=== PATIENT | female | born 1995 | race Caucasian/White ===

== ENCOUNTER 2019-11-14 01:27 | Emergency (ER) | payer MEDICAID, OTHER ==
[~2019-11-14] VITALS: Ht 172.7 cm; Wt 65.0 kg
[~2019-11-14 01:27] MED LIST: MULT-516 PO; NONE PER PT
[2019-11-14] MEDS ORDERED: MIDAZOLAM 1 MG/ML, 2ML ONE (01:54)
[2019-11-14 02:00] LABS: BASOPHILS # (AUTO) 0.03 x10^3/uL (0-0.1); BASOPHILS % (AUTO) 0 % (0-1); EOSINOPHILS # (AUTO) 0.35 x10^3/uL (0-0.4); EOSINOPHILS % (AUTO) 6 % (1-7); LYMPHOCYTES # (AUTO) 2.22 x10^3/uL (1-3.4); LYMPHOCYTES % (AUTO) 36 % (22-44); MD NO; MEAN CORPUSCULAR HEMOGLOBIN 32.5 pg (27.0-34.8); MEAN CORPUSCULAR HGB CONC 33.9 g/dL (32.4-35.8); MEAN CORPUSCULAR VOLUME 95.8 fL (80-100); MEAN PLATELET VOLUME 9.5 fL (7.4-10.4); MONOCYTES # (AUTO) 0.35 x10^3/uL (0.2-0.8); MONOCYTES % (AUTO) 6 % (2-9); NEUTROPHILS # (AUTO) 3.24 x10^3/uL (1.8-6.8); NEUTROPHILS % (AUTO) 52 % (42-75); PLATELET COUNT 241 x10^3/uL (130-400); RED BLOOD COUNT 5.09 x10^6/uL (3.82-5.3); RED CELL DISTRIBUTION WIDTH 12.5 % (9.6-15.2)
[2019-11-14 02:10] LABS: ALBUMIN 4.4 g/dL (3.4-5.0); ANION GAP 9 mmol/L (5-15); CALCIUM 9.2 mg/dL (8.5-10.1); CHLORIDE 110 mmol/L (98-107); CREATININE 0.72 mg/dL (0.55-1.02); SALICYLATE LEVEL 2.6 mg/dL (2.8-20.0)
--- NOTE | 2019-11-14 02:12 | NUR ---
PT "CHICKEN LITTLE" AKA "GREG" PHONE # [phone]
[2019-11-14 02:23] LABS: AMPHETAMINE SCREEN, URINE Negative (Negative); BARBITURATE SCREEN, URINE Negative (Negative); BENZODIAZEPINE SCREEN, URINE Negative (Negative); CANNABINOID SCREEN, URINE Negative (Negative); COCAINE SCREEN, URINE Negative (Negative); METHADONE SCREEN, URINE Negative (Negative); OPIATE SCREEN, URINE Negative (Negative)
[2019-11-14] MEDS ORDERED: MIDAZOLAM 1 MG/ML, 2ML IVPush ONE (02:30)
--- NOTE | 2019-11-14 02:30 | NUR ---
BREAK RN: PATIENT ATTEMPTED TO HARM HERSELF WITH EAR-RINGS. IT WAS EXPLAINED TO THE PATIENT THAT SHE WAS NO LONGER ALLOWED TO HAVE EAR-RINGS OR OTHER JEWLERY. PATIENT WILLINGLY AGREED TO HAVE JEWLERY TAKEN TO SAFE WITH SECURITY.
--- NOTE | 2019-11-14 02:49 | NUR ---
PATIENTS BELONGINGS PLACED WITH SECURITY. SECURITY RECIEPT PLACED ON PATIENT'S CHART. PATIENT SIGNED FOR BELONGINGS TO BE TAKEN TO THE SAFE.
--- NOTE | 2019-11-14 02:58 | NUR ---
PATIENT'S HAS ARRIVED. PATIENT AGREED TO BE CALM AND COOPERATIVE. PATIENT IS BEING ALLOWED TO SEE IF SHE FOLLOWS INSTRUCTIONS. PATIENT'S UPDATED ON PLAN OF CARE.
--- NOTE | 2019-11-14 03:00 | NUR ---
REPORT GIVEN TO BONNIE ARANA, WOOD HAS CONCLUDED.
[2019-11-14] MEDS ORDERED: hydrOXyzine 50MG TABLET ONE (03:58)
[2019-11-14] MEDS ORDERED: hydrOXyzine 50MG TABLET PO ONE (04:00)
--- NOTE | 2019-11-14 04:02 | NUR ---
PT THREATED TO "ACT OUT" TO GET A MEDICATION TO HELP HER SLEEP. PROVIDER NOTIFIED
--- NOTE | 2019-11-14 05:00 | NUR ---
PT PROVIDED A PHONE TO CALL HER WORK TO LET THEM KNOW SHE WOULD NOT BE THERE TOMMOROW
--- NOTE | 2019-11-14 05:12 | NUR ---
PT PROVIDED A HOSPITAL BED AND A PILLOW WITH LINENS. SITTER AT PT BED SIDE AND PT ROOM SI SECURE.
--- NOTE | 2019-11-14 06:02 | NUR ---
packet faxed to [facility], lenora, sb, rbh, stu
--- NOTE | 2019-11-14 06:30 | NUR ---
LEXUS FROM [facility] CALLED AND STATED THAT THEY ARE CURRENTLY FULL BUT THEY WILL KEEP PTS PACKED ON HAND JUST IN CASE THERE IS A DISCHARGE.
--- NOTE | 2019-11-14 06:44 | NUR ---
PT SLEEPING IN BED. ELECTRONIC GLUER AT BEDSIDE WITH PT ROOM SI SECURE
--- NOTE | 2019-11-14 06:57 | NUR ---
REPORT RECEIVED FROM YASMEEN NICOLE. PT SLEEPING ON HOSPITAL BED W/ SITTER OUTSIDE ROOM AND GARAGE DOORS DOWN FOR SAFETY. RESP EVEN AND UNLABORED, YASMINE.
--- NOTE | 2019-11-14 08:00 | NUR ---
PT SLEEPING ON HOSPITAL BED W/ SITTER OUTSIDE ROOM AND GARAGE DOORS DOWN. RESP EVEN AND UNLABOED, YASMINE.
--- NOTE | 2019-11-14 09:00 | NUR ---
PT SLEEPING ON HOSPITAL BED W/ SITTER OUTSIDE ROOM AND GARAGE DOORS DOWN. RESP EVEN AND UNLABOED, YASMINE.
--- NOTE | 2019-11-14 09:26 | NUR ---
task rn: pt continues to rest on bkea. natividad. all safety measures obtained.
--- NOTE | 2019-11-14 10:00 | NUR ---
PT SLEEPING ON HOSPITAL BED W/ SITTER OUTSIDE ROOM AND GARAGE DOORS DOWN. RESP EVEN AND UNLABOED, YASMINE.
--- NOTE | 2019-11-14 10:57 | NUR ---
REPORT GIVEN TO NOELLE NICOLE. PT SLEEPING ON HOSPITAL BED W/ SITTER OUTSIDE ROOM AND GARAGE DOORS DOWN FOR SAFETY. RESP EVEN AND UNLABORED, YASMINE.
--- NOTE | 2019-11-14 11:24 | NUR ---
PT AMBULATED TO WITHOUT DIFFICULTY. WATER PROVIDED. DECLINES FOOD AT THIS TIME. FLAT AFFECT, STATES SHE FEELS "EMOTIONALLY DRAINED". PATTERNMAKER ALL AROUND AT FOR VS AND BREATHALYZER. Addendum: 11/14/19 at 1407 by HBENSON SITTER OUTSIDE ROOM AT ALL TIMES.
--- NOTE | 2019-11-14 13:00 | NUR ---
PSYCH BRAZING MACHINE OPERATOR WAS IN TO SPEAK WITH PT.
[2019-11-14] MEDS ORDERED: FLUOXETINE HCL 20 MG CAPSULE PO ONE (13:30)
--- NOTE | 2019-11-14 13:40 | NUR ---
LEGAL HOLD DC'D BY PSYCH PREMIX CONCRETE BATCHER.
[2019-11-14 13:45] VITALS: BP 117/76
[2019-11-14] MEDS ORDERED: FLUOXETINE HCL 20 MG CAPSULE ONE (13:47)
--- NOTE | 2019-11-14 13:50 | NUR ---
PT MEDICATED PER ORDERS. AT BS TO TAKE PT HOME. D/C INSTRUCTIONS, MEDS & F/U APPT RV'WD WITH PT, SHE VERBALIZES UNDERSTANDING. RX GIVEN X2. COMMUNITY RESOURCES/MENTAL HEALTH RESOURCES PROVIDED TO PT. PT AMBULATED OUT OF ED WITH WITHOUT DIFFICULTY.
== END 2019-11-14 14:03 | disposition home or self-care (01) ==
LOC: ED 10:33
DX: T14.91XA Suicide attempt, initial encounter (principal); F10.129 Alcohol abuse with intoxication, unspecified; X83.8XXA Intentional self-harm by other specified means, initial encounter; Z87.891 Personal history of nicotine dependence; Y93.89 Activity, other specified; Y92.89 Other specified places as the place of occurrence of the external cause; Y99.8 Other external cause status; Y90.9 Presence of alcohol in blood, level not specified
CPT/HCPCS: 36415; 80048; 80307; 82040; 84703; 85025; 96374; 99284; J2250; Q0177

== ENCOUNTER 2019-11-29 19:15 | Inpatient (IN) | payer OTHER ==
[~2019-11-29] VITALS: Ht 170.2 cm; Wt 72.2 kg
[~2019-11-29 19:15] MED LIST changes: +ETOMIDATE 20 MG/10 ML ONE; +MIDAZOLAM 1 MG/ML, 5ML ONE; +PROPOFOL 10 MG/ML, 100ML IV ONE; +SUCCINYLCHOLINE 20 MG/ML, 10ML ONE
[2019-11-29] MEDS ORDERED: SUCCINYLCHOLINE 20 MG/ML, 10ML IVPush ONE (19:30)
[2019-11-29] MEDS ORDERED: ETOMIDATE 20 MG/10 ML IV ONE (19:30)
[2019-11-29] MEDS ORDERED: SODIUM CHLORIDE 0.9% 1,000ML IVBOLUS ONE ×2 (19:30→23:00)
[2019-11-29 19:36] LABS: BASOPHILS # (AUTO) 0.02 x10^3/uL (0-0.1); BASOPHILS % (AUTO) 0 % (0-1); EOSINOPHILS # (AUTO) 0.16 x10^3/uL (0-0.4); EOSINOPHILS % (AUTO) 3 % (1-7); LYMPHOCYTES # (AUTO) 2.29 x10^3/uL (1-3.4); LYMPHOCYTES % (AUTO) 37 % (22-44); MD NO; MEAN CORPUSCULAR HEMOGLOBIN 32.5 pg (27.0-34.8); MEAN CORPUSCULAR HGB CONC 33.8 g/dL (32.4-35.8); MEAN CORPUSCULAR VOLUME 96.1 fL (80-100); MEAN PLATELET VOLUME 9.3 fL (7.4-10.4); MONOCYTES # (AUTO) 0.43 x10^3/uL (0.2-0.8); MONOCYTES % (AUTO) 7 % (2-9); NEUTROPHILS # (AUTO) 3.35 x10^3/uL (1.8-6.8); NEUTROPHILS % (AUTO) 54 % (42-75); PLATELET COUNT 211 x10^3/uL (130-400); RED BLOOD COUNT 4.59 x10^6/uL (3.82-5.3); RED CELL DISTRIBUTION WIDTH 12.9 % (9.6-15.2)
[2019-11-29] MEDS ORDERED: MIDAZOLAM 1 MG/ML, 2ML ONE ×2 (19:36)
[2019-11-29 19:48] LABS: ALBUMIN 3.8 g/dL (3.4-5.0); ANION GAP 10 mmol/L (5-15); CALCIUM 8.5 mg/dL (8.5-10.1); CHLORIDE 110 mmol/L (98-107)
[2019-11-29 19:52] LABS: SALICYLATE LEVEL < 1.7 mg/dL (2.8-20.0)
[2019-11-29 19:53] LABS: ALANINE AMINOTRANSFERASE 40 U/L (12-78); ALKALINE PHOSPHATASE 100 U/L (45-117); BILIRUBIN,TOTAL 0.4 mg/dL (0.2-1.0); CREATININE 0.48 mg/dL (0.55-1.02); TOTAL PROTEIN 7.6 g/dL (6.4-8.2)
[2019-11-29] MEDS ORDERED: MIDAZOLAM 1 MG/ML, 5ML IVPush ONE (20:00)
--- NOTE | 2019-11-29 20:16 | NUR ---
PT HYPOTHERMIC, WARMING MEASURES APPLIED.
[2019-11-29] MEDS ORDERED: PROPOFOL 100 ML IV PRN (20:30)
--- NOTE | 2019-11-29 20:32 | NUR ---
PT SANDRA [phone].
[2019-11-29] MEDS ORDERED: POTASSIUM CHLORIDE 20 MEQ TAB.ER.PRT PO ONE (20:34)
[2019-11-29] MEDS: PROPOFOL 100 ML IV PRN (20:54)
[2019-11-29] MEDS ORDERED: LIDOCAINE-MPF 1%, 2ML ENDO PRN (21:00)
[2019-11-29] MEDS ORDERED: PHARMACY MAY ADJ FOR RENAL FX MC SCH (21:00)
[2019-11-29] MEDS ORDERED: SODIUM CHLORIDE 0.9% 1,000 ML IV SCH (21:00)
[2019-11-29] MEDS ORDERED: MIDAZOLAM 1 MG/ML, 2ML IVPush ONE (21:00)
--- NOTE | 2019-11-29 21:10 | NUR ---
ER KATELYN AND STUDENT IN TO PLACE CENTRAL LINE AT THIS TIME
--- NOTE | 2019-11-29 21:20 | NUR ---
[facility] CONTROL CONTACTED. , SPOKE WITH RAJINDER. SHE SAID WE ARE DOING EVERYTHING CORRECT AND TO LOOK FOR QRS WIDENING AND QT INTERVAL ELEVATION THE PT RECOVERS FROM OD
--- NOTE | 2019-11-29 21:22 | NUR ---
REPORT TO BONNIE KIRKLAND
[2019-11-29] MEDS ORDERED: NOREPINEPHRINE 8 MG in SODIUM CHLORIDE 0.9% 242 ML IV PRN (21:30)
[2019-11-29 21:39] LABS: MICROSCOPIC AUTO
[2019-11-29 21:49] LABS: AMPHETAMINE SCREEN, URINE Negative (Negative); BARBITURATE SCREEN, URINE Negative (Negative); BENZODIAZEPINE SCREEN, URINE Positive (Negative); CANNABINOID SCREEN, URINE Negative (Negative); COCAINE SCREEN, URINE Negative (Negative); METHADONE SCREEN, URINE Negative (Negative); OPIATE SCREEN, URINE Negative (Negative)
[2019-11-29 22:00] VITALS: BP 87/46
[2019-11-29] MEDS: FAMOTIDINE 20 MG/2 ML IV SCH (23:06)
[2019-11-29] MEDS: POTASSIUM CHLORIDE 20 MEQ TAB.ER.PRT PO SCH (23:06)
[2019-11-29] MEDS: HEPARIN 5,000 UNITS/ML, 1ML SQ SCH (23:07)
[2019-11-30] MEDS: PHENYLEPHRINE 50 MG in SODIUM CHLORIDE 0.9% 245 ML IV PRN ×2 (02:11→10:28)
[2019-11-30 02:36] VITALS: BP 87/45
[2019-11-30] MEDS: FENTANYL PF 100 MCG/2ML IVPush PRN ×3 (02:56→20:18)
[2019-11-30 04:00] VITALS: BP 94/46
[2019-11-30 05:27] LABS: BASOPHILS # (AUTO) 0.02 x10^3/uL (0-0.1); BASOPHILS % (AUTO) 0 % (0-1); EOSINOPHILS % (AUTO) 1 % (1-7); LYMPHOCYTES # (AUTO) 2.18 x10^3/uL (1-3.4); LYMPHOCYTES % (AUTO) 28 % (22-44); MD NO; MEAN CORPUSCULAR HEMOGLOBIN 32.6 pg (27.0-34.8); MEAN CORPUSCULAR HGB CONC 33.7 g/dL (32.4-35.8); MEAN CORPUSCULAR VOLUME 96.9 fL (80-100); MEAN PLATELET VOLUME 9.2 fL (7.4-10.4); MONOCYTES # (AUTO) 0.48 x10^3/uL (0.2-0.8); MONOCYTES % (AUTO) 6 % (2-9); NEUTROPHILS % (AUTO) 64 % (42-75); PLATELET COUNT 167 x10^3/uL (130-400); RED BLOOD COUNT 3.77 x10^6/uL (3.82-5.3); RED CELL DISTRIBUTION WIDTH 13.1 % (9.6-15.2)
[2019-11-30 05:29] LABS: ANION GAP 8 mmol/L (5-15); CALCIUM 7.5 mg/dL (8.5-10.1); CHLORIDE 118 mmol/L (98-107); CREATININE 0.51 mg/dL (0.55-1.02)
[2019-11-30] MEDS: POTASSIUM CHLORIDE 20 MEQ TAB.ER.PRT PO SCH ×2 (08:45→16:35)
[2019-11-30] MEDS: FAMOTIDINE 20 MG/2 ML IV SCH ×2 (08:45→22:10)
[2019-11-30] MEDS: HEPARIN 5,000 UNITS/ML, 1ML SQ SCH ×2 (08:45→16:35)
[2019-11-30] MEDS: SODIUM CHLORIDE 0.45% 1,000 ML IV SCH (10:27)
[2019-11-30 10:43] LABS: FREE T4 (FREE THYROXINE) 0.86 ng/dL (0.76-1.46)
[2019-11-30] MEDS: PROPOFOL 100 ML IV PRN (20:19)
[2019-12-01] MEDS: HEPARIN 5,000 UNITS/ML, 1ML SQ SCH ×3 (00:40→17:13)
[2019-12-01] MEDS: SODIUM CHLORIDE 0.45% 1,000 ML IV SCH ×2 (00:40→12:40)
[2019-12-01] MEDS: PROPOFOL 100 ML IV PRN ×2 (00:46→00:47)
[2019-12-01] MEDS: FENTANYL PF 100 MCG/2ML IVPush PRN (02:48)
[2019-12-01 04:57] VITALS: BP 116/75
[2019-12-01 05:24] LABS: BASOPHILS # (AUTO) 0.03 x10^3/uL (0-0.1); BASOPHILS % (AUTO) 1 % (0-1); EOSINOPHILS # (AUTO) 0.29 x10^3/uL (0-0.4); EOSINOPHILS % (AUTO) 5 % (1-7); LYMPHOCYTES # (AUTO) 1.32 x10^3/uL (1-3.4); LYMPHOCYTES % (AUTO) 25 % (22-44); MD NO; MEAN CORPUSCULAR HEMOGLOBIN 32.9 pg (27.0-34.8); MEAN CORPUSCULAR HGB CONC 34.2 g/dL (32.4-35.8); MEAN CORPUSCULAR VOLUME 96.2 fL (80-100); MEAN PLATELET VOLUME 8.8 fL (7.4-10.4); MONOCYTES # (AUTO) 0.35 x10^3/uL (0.2-0.8); MONOCYTES % (AUTO) 7 % (2-9); NEUTROPHILS # (AUTO) 3.36 x10^3/uL (1.8-6.8); NEUTROPHILS % (AUTO) 63 % (42-75); PLATELET COUNT 132 x10^3/uL (130-400); RED BLOOD COUNT 3.47 x10^6/uL (3.82-5.3); RED CELL DISTRIBUTION WIDTH 13.4 % (9.6-15.2)
[2019-12-01 05:30] LABS: ANION GAP 6 mmol/L (5-15); CALCIUM 7.6 mg/dL (8.5-10.1); CHLORIDE 114 mmol/L (98-107); CREATININE 0.41 mg/dL (0.55-1.02)
[2019-12-01] MEDS ORDERED: POTASSIUM CHLORIDE 20 MEQ TAB.ER.PRT PO ONE (07:00)
[2019-12-01] MEDS ORDERED: MAGNESIUM SULFATE PMX 2GM/50ML 50 ML IV ONE (07:00)
[2019-12-01] MEDS: FAMOTIDINE 20 MG/2 ML IV SCH ×2 (09:42→22:27)
[2019-12-01 17:51] VITALS: BP 128/81
[2019-12-01 19:23] VITALS: BP 119/80
[2019-12-01 21:57] VITALS: BP 122/86
[2019-12-01] MEDS ORDERED: DIPHENHYDRAMINE 50 MG CAPSULE PO PRN (23:00)
[2019-12-02 01:04] VITALS: BP 134/75
[2019-12-02 05:45] LABS: BASOPHILS # (AUTO) 0.01 x10^3/uL (0-0.1); BASOPHILS % (AUTO) 0 % (0-1); EOSINOPHILS # (AUTO) 0.38 x10^3/uL (0-0.4); EOSINOPHILS % (AUTO) 9 % (1-7); LYMPHOCYTES % (AUTO) 29 % (22-44); MD NO; MEAN CORPUSCULAR HEMOGLOBIN 32.7 pg (27.0-34.8); MEAN CORPUSCULAR HGB CONC 34.2 g/dL (32.4-35.8); MEAN CORPUSCULAR VOLUME 95.7 fL (80-100); MEAN PLATELET VOLUME 9.1 fL (7.4-10.4); MONOCYTES # (AUTO) 0.33 x10^3/uL (0.2-0.8); MONOCYTES % (AUTO) 7 % (2-9); NEUTROPHILS # (AUTO) 2.49 x10^3/uL (1.8-6.8); NEUTROPHILS % (AUTO) 55 % (42-75); PLATELET COUNT 148 x10^3/uL (130-400); RED BLOOD COUNT 3.79 x10^6/uL (3.82-5.3); RED CELL DISTRIBUTION WIDTH 12.8 % (9.6-15.2)
[2019-12-02] MEDS: HEPARIN 5,000 UNITS/ML, 1ML SQ SCH ×2 (05:48→14:29)
[2019-12-02 05:56] LABS: ANION GAP 5 mmol/L (5-15); CALCIUM 8.8 mg/dL (8.5-10.1); CHLORIDE 109 mmol/L (98-107)
[2019-12-02 05:58] LABS: CREATININE 0.46 mg/dL (0.55-1.02); TRIGLYCERIDES 151 mg/dL (50-200)
[2019-12-02 07:20] VITALS: BP 118/80
[2019-12-02] MEDS: FAMOTIDINE 20 MG/2 ML IV SCH (10:08)
[2019-12-02 13:40] VITALS: BP 114/81
[2019-12-02 20:01] VITALS: BP 134/72
[2019-12-02] MEDS ORDERED: ACETAMINOPHEN 325 MG TABLET PO PRN (21:00)
[2019-12-02] MEDS: ENOXAPARIN 40 MG/0.4 ML SQ SCH (21:19)
[2019-12-02] MEDS: CIPROFLOXACIN 500 MG TABLET PO SCH (21:19)
[2019-12-02] MEDS: MELATONIN 5 MG TABLET PO PRN (21:19)
[2019-12-03 02:18] VITALS: BP 106/72
[2019-12-03] MEDS ORDERED: GUAIFENESIN/DM 200-20MG, 10ML UDC PO PRN ×2 (02:30→08:30)
[2019-12-03] MEDS ORDERED: GUAIFENESIN/DM 200-20MG, 10ML UDC ONE (02:36)
[2019-12-03] MEDS ORDERED: ROBITUSSIN DM MC SCH (03:00)
[2019-12-03 05:43] LABS: BASOPHILS # (AUTO) 0.02 x10^3/uL (0-0.1); BASOPHILS % (AUTO) 0 % (0-1); EOSINOPHILS # (AUTO) 0.35 x10^3/uL (0-0.4); EOSINOPHILS % (AUTO) 8 % (1-7); LYMPHOCYTES # (AUTO) 1.26 x10^3/uL (1-3.4); LYMPHOCYTES % (AUTO) 30 % (22-44); MD NO; MEAN CORPUSCULAR HEMOGLOBIN 32.3 pg (27.0-34.8); MEAN CORPUSCULAR HGB CONC 33.5 g/dL (32.4-35.8); MEAN CORPUSCULAR VOLUME 96.3 fL (80-100); MEAN PLATELET VOLUME 9.2 fL (7.4-10.4); MONOCYTES # (AUTO) 0.38 x10^3/uL (0.2-0.8); MONOCYTES % (AUTO) 9 % (2-9); NEUTROPHILS % (AUTO) 52 % (42-75); PLATELET COUNT 164 x10^3/uL (130-400); RED CELL DISTRIBUTION WIDTH 12.8 % (9.6-15.2)
[2019-12-03 05:54] LABS: ALBUMIN 3.2 g/dL (3.4-5.0); ANION GAP 8 mmol/L (5-15); CALCIUM 9.2 mg/dL (8.5-10.1); CHLORIDE 105 mmol/L (98-107)
[2019-12-03 05:57] LABS: ALANINE AMINOTRANSFERASE 61 U/L (12-78); ALKALINE PHOSPHATASE 129 U/L (45-117); BILIRUBIN,TOTAL 1.2 mg/dL (0.2-1.0); CREATININE 0.44 mg/dL (0.55-1.02); TOTAL PROTEIN 7.1 g/dL (6.4-8.2)
[2019-12-03 06:55] VITALS: BP 125/87
[2019-12-03] MEDS: CIPROFLOXACIN 500 MG TABLET PO SCH ×2 (08:05→21:20)
[2019-12-03 13:06] VITALS: BP 120/73
[2019-12-03 18:39] VITALS: BP 143/83
[2019-12-03] MEDS: ENOXAPARIN 40 MG/0.4 ML SQ SCH (21:20)
[2019-12-04] MEDS: MELATONIN 5 MG TABLET PO PRN ×2 (00:02→19:43)
[2019-12-04 00:44] VITALS: BP 119/79
[2019-12-04 06:02] LABS: ALBUMIN 3.7 g/dL (3.4-5.0); CHLORIDE 105 mmol/L (98-107)
[2019-12-04 06:06] LABS: ALANINE AMINOTRANSFERASE 82 U/L (12-78); ALKALINE PHOSPHATASE 137 U/L (45-117); ANION GAP 4 mmol/L (5-15); BILIRUBIN,TOTAL 1.2 mg/dL (0.2-1.0); CALCIUM 9.8 mg/dL (8.5-10.1); TOTAL PROTEIN 7.4 g/dL (6.4-8.2)
[2019-12-04 07:11] VITALS: BP 117/75
[2019-12-04] MEDS: CIPROFLOXACIN 500 MG TABLET PO SCH ×2 (09:11→19:43)
[2019-12-04 12:52] VITALS: BP 117/80
[2019-12-04 19:23] VITALS: BP 134/90
[2019-12-04] MEDS: ENOXAPARIN 40 MG/0.4 ML SQ SCH (19:43)
[2019-12-05 04:19] VITALS: BP_SYST 11; BP_SYST 111; BP_DIAS 78
[2019-12-05 06:21] LABS: ALANINE AMINOTRANSFERASE 112 U/L (12-78); ANION GAP 8 mmol/L (5-15); CALCIUM 9.6 mg/dL (8.5-10.1); CHLORIDE 105 mmol/L (98-107); CREATININE 0.55 mg/dL (0.55-1.02)
[2019-12-05 06:23] LABS: ALKALINE PHOSPHATASE 142 U/L (45-117); BILIRUBIN,TOTAL 0.6 mg/dL (0.2-1.0); TOTAL PROTEIN 8.2 g/dL (6.4-8.2)
[2019-12-05 07:14] VITALS: BP 119/77
[2019-12-05] MEDS: CIPROFLOXACIN 500 MG TABLET PO SCH ×2 (08:24→20:46)
[2019-12-05] MEDS ORDERED: POTASSIUM CHLORIDE 20 MEQ TAB.ER.PRT PO ONE (09:00)
[2019-12-05 12:12] VITALS: BP 120/78
[2019-12-05] MEDS: MELATONIN 5 MG TABLET PO PRN (20:46)
[2019-12-05] MEDS: ENOXAPARIN 40 MG/0.4 ML SQ SCH (20:47)
[2019-12-05 20:51] VITALS: BP 128/88
[2019-12-06 02:05] VITALS: BP 118/87
[2019-12-06 05:06] LABS: ALBUMIN 4.4 g/dL (3.4-5.0); ANION GAP 8 mmol/L (5-15); CHLORIDE 102 mmol/L (98-107)
[2019-12-06 05:10] LABS: ALANINE AMINOTRANSFERASE 110 U/L (12-78); ALKALINE PHOSPHATASE 148 U/L (45-117); BILIRUBIN,TOTAL 0.6 mg/dL (0.2-1.0); TOTAL PROTEIN 8.4 g/dL (6.4-8.2)
[2019-12-06 06:22] VITALS: BP 131/87
[2019-12-06 13:54] VITALS: BP 114/74
[2019-12-06 19:45] VITALS: BP 119/95
[2019-12-06] MEDS: ENOXAPARIN 40 MG/0.4 ML SQ SCH (21:00)
[2019-12-07 01:15] VITALS: BP 117/76
[2019-12-07 04:36] LABS: ALBUMIN 3.6 g/dL (3.4-5.0); ANION GAP 6 mmol/L (5-15); CHLORIDE 108 mmol/L (98-107)
[2019-12-07 04:41] LABS: ALANINE AMINOTRANSFERASE 84 U/L (12-78); ALKALINE PHOSPHATASE 109 U/L (45-117); BILIRUBIN,TOTAL 0.4 mg/dL (0.2-1.0); CREATININE 0.63 mg/dL (0.55-1.02); TOTAL PROTEIN 7.1 g/dL (6.4-8.2)
[2019-12-07 08:55] VITALS: BP 101/65
[2019-12-07] MEDS ORDERED: FLUO20CA19 PO (18:42)
[2019-12-07] MEDS ORDERED: QUET100T4 PO (18:43)
== END 2019-12-07 13:35 | DRG 917 ==
LOC: ED 20:57 → EDIP 21:18 → CCU 21:43 → 5SO 12-01 16:02 → 4EST 12-01 21:55 → 4WST 12-03 15:58
PROVIDERS: ADMIT Family Medicine; ATTEND Internal Medicine Infectious Disease
PROC: 02HV33Z Insertion of Infusion Device into Superior Vena Cava, Percutaneous Approach (ICD-10-PCS; principal; 2019-11-29)
PROC: 0BH17EZ Insertion of Endotracheal Airway into Trachea, Via Natural or Artificial Opening (ICD-10-PCS; 2019-11-29)
PROC: 5A1945Z Respiratory Ventilation, 24-96 Consecutive Hours (ICD-10-PCS; 2019-11-29)
PROC: 5A09357 Assistance with Respiratory Ventilation, Less than 24 Consecutive Hours, Continuous Positive Airway Pressure (ICD-10-PCS; 2019-11-29)
DX: T43.592A Poisoning by other antipsychotics and neuroleptics, intentional self-harm, initial encounter (principal); G92 Toxic encephalopathy; J96.01 Acute respiratory failure with hypoxia; J96.02 Acute respiratory failure with hypercapnia; N39.0 Urinary tract infection, site not specified; R57.9 Shock, unspecified; T51.0X1A Toxic effect of ethanol, accidental (unintentional), initial encounter; E11.9 Type 2 diabetes mellitus without complications; E87.6 Hypokalemia; F10.229 Alcohol dependence with intoxication, unspecified; F29 Unspecified psychosis not due to a substance or known physiological condition; F31.9 Bipolar disorder, unspecified; F41.0 Panic disorder [episodic paroxysmal anxiety]; I10 Essential (primary) hypertension; Z20.828 Contact with and (suspected) exposure to other viral communicable diseases; Z81.8 Family history of other mental and behavioral disorders; Y92.89 Other specified places as the place of occurrence of the external cause; Z91.410 Personal history of adult physical and sexual abuse; Z91.5 Personal history of self-harm; Z88.1 Allergy status to other antibiotic agents; Z83.3 Family history of diabetes mellitus; Z82.49 Family history of ischemic heart disease and other diseases of the circulatory system
CPT/HCPCS: 31500; 36415; 36556; 36600; 99291; J3490; 71045; 76705; 80048; 80053; 80074; 80307; 81001; 82140; 82803; 82962; 83735; 84439; 84443; 84478; 84703; 85025; 87070; 87077; 87081; 87086; 87186; 87205; 87635; 93005; 94002; 94003; G0378; J1644; J1650; J2250; J2704; J3010; J0330; J2370; J3475; J7030; J7050

== ENCOUNTER 2019-12-07 12:40 | Inpatient (IN) | payer OTHER ==
[~2019-12-07] VITALS: Ht 172.7 cm; Wt 72.3 kg
[~2019-12-07 12:40] MED LIST changes: -ETOMIDATE 20 MG/10 ML ONE; -MIDAZOLAM 1 MG/ML, 5ML ONE; -PROPOFOL 10 MG/ML, 100ML IV ONE; -SUCCINYLCHOLINE 20 MG/ML, 10ML ONE
[2019-12-07] MEDS ORDERED: DOCUSATE 100 MG CAPSULE PO PRN (13:00)
[2019-12-07] MEDS ORDERED: ACETAMINOPHEN 325 MG TABLET PO PRN (13:00)
[2019-12-07] MEDS ORDERED: BISACODYL 10 MG SUPP PR PRN (13:00)
[2019-12-07] MEDS ORDERED: ONDANSETRON ODT 4 MG PO PRN (13:00)
[2019-12-07] MEDS ORDERED: POLYETHYLENE GLYCOL 17 GM PACKET PO PRN (13:00)
[2019-12-07 16:43] VITALS: BP 131/87
[2019-12-07] MEDS ORDERED: FLUO20CA19 PO (18:42)
[2019-12-07] MEDS ORDERED: QUET100T4 PO (18:43)
[2019-12-07 19:45] VITALS: BP 119/77
[2019-12-07] MEDS: DIPHENHYDRAMINE 50 MG CAPSULE PO PRN (20:41)
[2019-12-08 07:27] VITALS: BP 107/74
[2019-12-08 09:16] LABS: CHOL/HDL RATIO 3.4; LDL/HDL RATIO 1.9 (0.5-3.0)
[2019-12-08] MEDS: ESCITALOPRAM 10MG TABLET PO SCH (13:30)
[2019-12-08 19:00] VITALS: BP 114/76
[2019-12-08] MEDS: DIPHENHYDRAMINE 50 MG CAPSULE PO PRN (20:23)
[2019-12-09 07:00] VITALS: BP 109/63
[2019-12-09] MEDS: ESCITALOPRAM 10MG TABLET PO SCH (09:00)
[2019-12-09] MEDS: DIPHENHYDRAMINE 50 MG CAPSULE PO PRN (17:39)
[2019-12-09 18:54] VITALS: BP 89/60
[2019-12-10 07:00] VITALS: BP 110/57
== END 2019-12-10 10:40 | disposition home or self-care (01) | DRG 885 ==
LOC: 3E 14:04
PROVIDERS: ADMIT Psychiatry & Neurology Psychosomatic Medicine; ATTEND Psychiatry & Neurology Psychosomatic Medicine
DX: F33.2 Major depressive disorder, recurrent severe without psychotic features (principal); Z91.5 Personal history of self-harm; Z88.1 Allergy status to other antibiotic agents; Z72.89 Other problems related to lifestyle; Z82.49 Family history of ischemic heart disease and other diseases of the circulatory system; Z83.3 Family history of diabetes mellitus
CPT/HCPCS: 36415; 80061; 82140